=== PATIENT | female | born 1975 | race Caucasian/White ===

== ENCOUNTER 2020-03-16 01:04 | Emergency (ER) | payer SELFPAY ==
[2020-03-16 01:14] VITALS: BP 104/52
[2020-03-16] MEDS ORDERED: MORPHINE SULFATE 10 MG/ML INJ IV ONE (01:20)
[2020-03-16] MEDS ORDERED: ONDANSETRON HCL INJ/PF 4 MG/2 ML SDV IV ONE (01:21)
--- NOTE | 2020-03-16 01:23 | ER Document Report ---
ED Medical Screen (RME) - General Chief Complaint: Back Pain Stated Complaint: BACK & HIP PAIN Time Seen by Provider: 03/16/20 01:13 Primary Care Provider: KIMBERLY GIANG PA-C [Primary Care Provider] - Follow up as needed Mode of Arrival: Wheelchair Information source: Patient Notes: HPI; 44-year-old female presents to the emergency room with sudden onset of left hip and back pain that started 5 hours prior to arrival.. History of 2 back into left hip replacements most recently left hip replacement a month ago. States she took her Percocet, Zanaflex, and use lidocaine patches without relief about 2 hours ago. Denies any urinary symptoms. Pain radiates from low back into left hip. She denies loss control of bowels or bladder. No saddle anesthesia. PE: Alert and oriented x3. Moderate distress noted. Lungs: Clear to auscultation without rales, rhonchi, wheezes. Heart: Regular rate and rhythm without murmurs, rubs, gallops. Unable to do full exam in triage and secondary to pain. I have greeted and performed a rapid initial assessment of this patient. A comprehensive ED assessment and evaluation of the patient, analysis of test results and completion of the medical decision making process will be conducted by additional ED providers. I have specifically instructed the patient or family members with the patient to immediately return to any nursing staff should anything change in the patient's condition or with their chief complaint. TRAVEL OUTSIDE OF THE [place] IN LAST 30 DAYS: No - Related Data Allergies/Adverse Reactions: Penicillins Allergy (Verified 10/27/11 15:23) Sulfa (Sulfonamide Antibiotics) Allergy (Verified 10/27/11 15:23) trazodone [Trazodone] Allergy (Verified 10/27/11 15:23) vancomycin [Vancomycin] Allergy (Verified 10/27/11 15:23) Past Medical History Endocrine Medical History: Reports: Hx Hypothyroidism Musculoskeltal Medical History: Reports Hx Fibromyalgia, Reports Hx Muscle Spasm Past Surgical History: Reports: Hx Cholecystectomy, Hx Gastric Bypass Surgery, Hx Orthopedic Surgery - both knees - Immunizations Hx Diphtheria, Pertussis, Tetanus Vaccination: Yes Physical Exam - Vital signs Vitals: Temp Pulse Resp BP Pulse Ox 97.4 F 83 18 104/52 L 100 03/16/20 01:11 03/16/20 01:11 03/16/20 01:11 03/16/20 01:11 03/16/20 01:11 Course - Vital Signs Vital signs: Temp Pulse Resp BP Pulse Ox 97.4 F 83 18 104/52 L 100 03/16/20 01:11 03/16/20 01:11 03/16/20 01:11 03/16/20 01:11 03/16/20 01:11 Doctor's Discharge - Discharge Referrals: KIMBERLY GIANG PA-C [Primary Care Provider] - Follow up as needed
[2020-03-16] MEDS ORDERED: ONDANSETRON 4 MG TAB.RAPDIS PO ONE (01:59)
== END 2020-03-16 02:10 | disposition left against medical advice (07) ==
LOC: ER 01:04
DX: M25.552 Pain in left hip (principal); M54.9 Dorsalgia, unspecified; Z96.642 Presence of left artificial hip joint; Z53.29 Procedure and treatment not carried out because of patient's decision for other reasons; Z98.84 Bariatric surgery status; Z88.0 Allergy status to penicillin; Z88.2 Allergy status to sulfonamides; Z88.8 Allergy status to other drugs, medicaments and biological substances
CPT/HCPCS: 96374; 96375; 99281; 99284

== ENCOUNTER 2020-03-16 12:49 | Emergency (ER) | payer BC ==
--- NOTE | 2020-03-16 13:26 | ER Document Report ---
ED Medical Screen (RME) - General Chief Complaint: General Weakness Stated Complaint: WEAKNESS Time Seen by Provider: 03/16/20 13:13 Primary Care Provider: KIMBERLY GIANG PA-C [Primary Care Provider] - Follow up as needed Information source: Patient Notes: 44-year-old female presents to the emergency room with sudden body weakness. She states she was seen here 12 hours before now for back and hip pain and she left before seeing a provider but now she has general body weakness. She states she has a history of [place]'s for 8 years. She states she went by her primary care providers and she was told that she would need to go to [facility] because we do not have anybody here that treats [place]. She states she usually gets admitted and gets put on high-dose steroids for 3 days. Patient is alert oriented respirations regular nonlabored at this time. Vital signs are not tip 98 respirations 16 pulse ox 99% blood pressure 123/60 and heart rate 70. States she came to the emergency room here because she could not get down the steps and they had to call EMS to get her down the steps and they brought her to this hospital. I have greeted and performed a rapid initial assessment of this patient. A comprehensive ED assessment and evaluation of the patient, analysis of test results and completion of medical decision making process will be conducted by an additional ED providers. TRAVEL OUTSIDE OF THE [place] IN LAST 30 DAYS: No - Related Data Allergies/Adverse Reactions: ciprofloxacin Allergy (Verified 03/16/20 01:24) meperidine [From Demerol] Allergy (Verified 03/16/20 01:25) Penicillins Allergy (Verified 10/27/11 15:23) Sulfa (Sulfonamide Antibiotics) Allergy (Verified 10/27/11 15:23) trazodone [Trazodone] Allergy (Verified 10/27/11 15:23) vancomycin [Vancomycin] Allergy (Verified 10/27/11 15:23) Past Medical History Endocrine Medical History: Reports: Hx Hypothyroidism Musculoskeltal Medical History: Reports Hx Fibromyalgia, Reports Hx Muscle Spasm Past Surgical History: Reports: Hx Cholecystectomy, Hx Gastric Bypass Surgery, Hx Orthopedic Surgery - both knees - Immunizations Hx Diphtheria, Pertussis, Tetanus Vaccination: Yes Physical Exam - Vital signs Vitals: Temp Pulse Resp BP Pulse Ox 98.0 F 70 16 123/60 99 03/16/20 12:59 03/16/20 12:59 03/16/20 12:59 03/16/20 12:59 03/16/20 12:59 Course - Vital Signs Vital signs: Temp Pulse Resp BP Pulse Ox 98.0 F 70 16 123/60 99 03/16/20 12:59 03/16/20 12:59 03/16/20 12:59 03/16/20 12:59 03/16/20 12:59 Doctor's Discharge - Discharge Referrals: KIMBERLY GIANG PA-C [Primary Care Provider] - Follow up as needed
[2020-03-16] MEDS ORDERED: NORMAL SALINE 1000 ML 1,000 ML IV ONE (13:28)
--- NOTE | 2020-03-16 13:54 | ER Document Report ---
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 Feels like prior addisonian crises. She says her labs usually come back normal but she is usually admitted for 3 days of high-dose steroids. She moved here from [place] and has primary care but no quebracho tanner. She denies specifically any pain nausea vomiting back pain fevers or COVID-like symptoms. TRAVEL OUTSIDE OF THE [place] IN LAST 30 DAYS: No - Related Data Allergies/Adverse Reactions: ciprofloxacin Allergy (Verified 03/16/20 01:24) meperidine [From Demerol] Allergy (Verified 03/16/20 01:25) Penicillins Allergy (Verified 10/27/11 15:23) Sulfa (Sulfonamide Antibiotics) Allergy (Verified 10/27/11 15:23) trazodone [Trazodone] Allergy (Verified 10/27/11 15:23) vancomycin [Vancomycin] Allergy (Verified 10/27/11 15:23) Past Medical History - General Information source: Patient - Social History Smoking Status: Current Every Day Smoker Frequency of alcohol use: None Drug Abuse: None Family History: None Endocrine Medical History: Reports: Hx Hypothyroidism Musculoskeletal Medical History: Reports Hx Fibromyalgia, Reports Hx Muscle Spasm Past Surgical History: Reports: Hx Cholecystectomy, Hx Gastric Bypass Surgery, Hx Orthopedic Surgery - both knees - Immunizations Hx Diphtheria, Pertussis, Tetanus Vaccination: Yes Review of Systems - Review of Systems Notes: REVIEW OF SYSTEMS GEN: Weakness no fever ENT: Denies sore throat, nasal discharge, ear pain EYES: Denies blurry vision, eye pain, discharge CV: Denies chest pain, palpitations, edema RESP: Denies cough, shortness of breath, wheezing GI: Denies abdominal pain, nausea, vomiting, diarrhea MSK: Denies joint pain/swelling, edema, SKIN: Denies rash, skin lesions LYMPH: Denies swollen glands/lymph nodes NEURO: Denies headache, focal weakness or numbness, dizziness PSYCH: Denies depression, suicidal or homicidal ideation PHYSICAL EXAMINATION General: Limp in bed slow to answer questions refuses to comply with physical exam Head: Atraumatic, normocephalic ENT: Mouth normal, oropharynx moist, no exudates or tonsillar enlargement Eyes: Conjunctiva normal, pupils equal, lids normal Neck: No JVD, supple, no guarding CVS: Normal rate, regular rhythm, no murmurs Resp: No resp distress, equal and normal breath sounds bilaterally GI: Nondistended, soft, no tenderness to palpation, no rebound or guarding Ext: No deformities, no edema, normal range of motion in upper and lower ext Back: No CVA or midline TTP Skin: No rash, warm Lymphatic: No lymphadeopathy noted Neuro: Awake, alert. Face symmetric. GCS 15. EENT: Tearing Physical Exam - Vital signs Vitals: Temp Pulse Resp BP Pulse Ox 98.0 F 70 16 123/60 99 03/16/20 12:59 03/16/20 12:59 03/16/20 12:59 03/16/20 12:59 03/16/20 12:59 Course - Re-evaluation Re-evalutation: 03/16/20 18:55 Patient presents with generalized weakness and fatigue with no focal weakness on exam in the setting of what she states is pots disease and [place]ord[place]'s disease. She said that every time she gets that she gets admitted for IV steroids. Her vitals are normal and not suggestive of an addisonian crisis although she may be somewhat on the spectrum of this, or have another cause of her weakness Full lab work-up does not show any acute abnormalities. She was given fluid. Her pressure stayed in the 100 110 range. I had a long discussion with her and she does not feel like she can be discharged. I discussed her with Dr. Phan the hospitalist. In reviewing her data in chart on the phone with me, as well as my presentation to him regarding her condition he states that she is not having an addisonian crisis and does not need to be admitted. I told him I would attempt to send her home if she was feeling okay. We discussed at length and I did discuss with her the possibility that there is other cause of her weakness. I offered to call the hospitalist to come evaluate her personally for admission, but to the nurse informed that the patient want to be discharged. I printed up her discharge instructions and by the time I got to the room to send her home she had already left.. - Vital Signs Vital signs: Temp Pulse Resp BP Pulse Ox 98.0 F 70 12 103/54 L 97 03/16/20 12:59 03/16/20 12:59 03/16/20 16:31 03/16/20 16:31 03/16/20 16:31 - Laboratory Result Diagrams: 03/16/20 13:40 03/16/20 13:40 Laboratory results interpreted by me: 03/16/20 03/16/20 13:40 13:40 Hgb 11.7 L Hct 35.1 L RDW 14.3 H Sodium 134.7 L Potassium 3.5 L Chloride 97 L AST 305 H ALT 115 H Alkaline Phosphatase 163 H Vitamin B12 957.0 H Discharge - Discharge Clinical Impression: Generalized weakness Condition: Good Disposition: HOME, SELF-CARE Instructions: Weakness (OM) Additional Instructions: We are unable to find a cause of your weakness. Your laboratory testing was normal. We attempted to have you admitted, and offered to have the inpatient doctor come see you. You wish to be discharged. Please return to the ER if you change your mind or have any further symptoms that worry you such as weakness vomiting passing out or any other concerning symptoms. Referrals: KIMBERLY GIANG PA-C [PHYSICIAN INTERACTIVE ACCOUNT MANAGER] - Follow up as needed (NIKKI MATTHEW primary care 3days)
[2020-03-16 14:11] LABS: ABSOLUTE BASOPHILS # (AUTO) 0.1 10^3/uL (0.0-0.2); ABSOLUTE EOSINOPHILS # (AUTO) 0.1 10^3/uL (0.0-0.6); ABSOLUTE LYMPHOCYTES (AUTO) 1.7 10^3/uL (0.5-4.7); ABSOLUTE MONOCYTES (AUTO) 0.6 10^3/uL (0.1-1.4); ABSOLUTE NEUT (AUTO) 2.1 10^3/uL (1.7-8.2); ABSOLUTE RETICS # 0.028 10^6/uL (0.028-0.122); BASOPHILS % (AUTO) 1.3 % (0-2); EOSINOPHILS % (AUTO) 1.9 % (0-6); HEMATOCRIT 35.1 % (36.0-47.0); HEMOGLOBIN 11.7 g/dL (12.0-15.5); MEAN CORPUSCULAR HEMOGLOBIN 27.1 pg (27.0-33.4); MEAN CORPUSCULAR HGB CONC 33.3 g/dL (32.0-36.0); MEAN CORPUSCULAR VOLUME 81 fl (80-97); MONOCYTES % (AUTO) 12.9 % (3-13); PLATELET COUNT 404 10^3/uL (150-450); RED BLOOD COUNT 4.33 10^6/uL (3.72-5.28); RED CELL DISTRIBUTION WIDTH 14.3 % (11.5-14.0); RETICULOCYTE COUNT (AUTO) 0.66 % (0.66-2.85); SEGMENTED NEUTROPHILS % (AUTO) 46.9 % (42-78); TOTAL CELLS COUNTED % (AUTO) 100 %; WHITE BLOOD COUNT 4.5 10^3/uL (4.0-10.5)
[2020-03-16 14:25] LABS: ALBUMIN 4.1 g/dL (3.5-5.0); ALKALINE PHOSPHATASE 163 U/L (38-126); ANION GAP 9 (5-19); ASPARTATE AMINO TRANSFERASE 305 U/L (14-36); BILIRUBIN,TOTAL 0.4 mg/dL (0.2-1.3); BLOOD UREA NITROGEN 12 mg/dL (7-20); CARBON DIOXIDE 29 mmol/L (22-30); CHLORIDE 97 mmol/L (98-107); GLUCOSE 102 mg/dL (75-110); IRON(TIBC) 44.5 ug/dL (37-170); POTASSIUM 3.5 mmol/L (3.6-5.0); TOTAL PROTEIN 7.3 g/dL (6.3-8.2)
[2020-03-16 14:41] LABS: AMORPHOUS SEDIMENT,URINE TRACE /HPF; APPEARANCE,URINE CLEAR; BILIRUBIN,URINE NEGATIVE (NEGATIVE); COLOR,URINE STRAW; GLUCOSE, URINE NEGATIVE (NEGATIVE); KETONES,URINE NEGATIVE (NEGATIVE); PROTEIN,URINE NEGATIVE (NEGATIVE); URINE SPECIFIC GRAVITY 1.006; UROBILINOGEN,URINE NEGATIVE mg/dL (<2.0)
[2020-03-16 14:52] LABS: FREE T3 4.43 pg/mL (2.77-5.27); FREE T4 (FREE THYROXINE) 0.99 ng/dL (0.78-2.19)
[2020-03-16 15:41] LABS: FOLATE > 20.00 ng/mL (>2.76)
[2020-03-16 16:37] VITALS: BP 103/54
== END 2020-03-16 16:37 | disposition home or self-care (01) ==
LOC: ER 12:49
DX: R53.1 Weakness (principal); R53.83 Other fatigue; E27.1 Primary adrenocortical insufficiency; I49.8 Other specified cardiac arrhythmias; F17.200 Nicotine dependence, unspecified, uncomplicated; Z88.1 Allergy status to other antibiotic agents; Z88.6 Allergy status to analgesic agent; Z88.5 Allergy status to narcotic agent; Z88.0 Allergy status to penicillin; Z88.2 Allergy status to sulfonamides; Z88.8 Allergy status to other drugs, medicaments and biological substances
CPT/HCPCS: 99284; 96360; 36415; 84439; 82607; 82728; 82746; 84702; 83540; 83550; 83735; 84443; 85025; 85045; 80053; 81001; 84481; 82533; J7030

== ENCOUNTER 2020-04-15 07:58 | Day surgery (SDC) | payer BC ==
[2020-04-05 11:27] LABS: HEMATOCRIT 35.2 % (36.0-47.0); HEMOGLOBIN 11.5 g/dL (12.0-15.5); MEAN CORPUSCULAR HEMOGLOBIN 26.5 pg (27.0-33.4); MEAN CORPUSCULAR HGB CONC 32.8 g/dL (32.0-36.0); MEAN CORPUSCULAR VOLUME 81 fl (80-97); PLATELET COUNT 432 10^3/uL (150-450); RED BLOOD COUNT 4.36 10^6/uL (3.72-5.28); WHITE BLOOD COUNT 6.2 10^3/uL (4.0-10.5)
[2020-04-05 12:44] LABS: ANION GAP 13 (5-19); BLOOD UREA NITROGEN 16 mg/dL (7-20); CALCIUM 9.5 mg/dL (8.4-10.2); CARBON DIOXIDE 30 mmol/L (22-30); CHLORIDE 98 mmol/L (98-107); GLUCOSE 96 mg/dL (75-110); POTASSIUM 3.9 mmol/L (3.6-5.0)
[~2020-04-15 07:58] MED LIST: ACETAMINOPHEN 325 MG TABLET PO PRN; CEFAZOLIN 2 GM/D5W RTU 2 GM/50 ML RTUPB IV PRN; FENTANYL CITRATE INJ/PF 100 MCG/2 ML AMPUL ONE; LACTATED RINGERS 1000 ML IV PRN; LIDOCAINE 0.5% INJ-PF (5 MG/ML) 50 ML SDV SUBCUT PRN; MIDAZOLAM 2 MG/2 ML INJ ONE; ONDANSETRON HCL INJ/PF 4 MG/2 ML SDV ONE; PROPOFOL INJ 200 MG/20 ML VIAL IV ONE
[2020-04-15 09:08] LABS: ABSOLUTE BASOPHILS # (AUTO) 0.1 10^3/uL (0.0-0.2); ABSOLUTE EOSINOPHILS # (AUTO) 0.1 10^3/uL (0.0-0.6); ABSOLUTE MONOCYTES (AUTO) 0.5 10^3/uL (0.1-1.4); ABSOLUTE NEUT (AUTO) 4.2 10^3/uL (1.7-8.2); BASOPHILS % (AUTO) 1.1 % (0-2); EOSINOPHILS % (AUTO) 1.5 % (0-6); HEMATOCRIT 42.7 % (36.0-47.0); HEMOGLOBIN 14.3 g/dL (12.0-15.5); LYMPHOCYTES % (AUTO) 29.2 % (13-45); MEAN CORPUSCULAR HEMOGLOBIN 26.7 pg (27.0-33.4); MEAN CORPUSCULAR HGB CONC 33.6 g/dL (32.0-36.0); MEAN CORPUSCULAR VOLUME 80 fl (80-97); MONOCYTES % (AUTO) 7.3 % (3-13); PLATELET COUNT 553 10^3/uL (150-450); RED BLOOD COUNT 5.36 10^6/uL (3.72-5.28); RED CELL DISTRIBUTION WIDTH 15.5 % (11.5-14.0); SEGMENTED NEUTROPHILS % (AUTO) 60.9 % (42-78); TOTAL CELLS COUNTED % (AUTO) 100 %; WHITE BLOOD COUNT 6.9 10^3/uL (4.0-10.5)
[2020-04-15] MEDS ORDERED: CEFAZOLIN 1 GM/D5W RTU 1 GM/50 ML RTUPB IV ONE (09:10)
[2020-04-15] MEDS ORDERED: HEPARIN SOD (PORCINE) 1,000 UNIT/ML 1 ML VIAL ONE (09:16)
[2020-04-15] MEDS ORDERED: LIDOCAINE 1%/EPINEPHRINE INJ 20 ML VIAL ONE (09:17)
[2020-04-15 09:20] LABS: ANION GAP 15 (5-19); BLOOD UREA NITROGEN 17 mg/dL (7-20); CALCIUM 10.6 mg/dL (8.4-10.2); CARBON DIOXIDE 24 mmol/L (22-30); CHLORIDE 102 mmol/L (98-107); GLUCOSE 94 mg/dL (75-110); POTASSIUM 4.7 mmol/L (3.6-5.0)
[2020-04-15] MEDS ORDERED: CEFAZOLIN 1 GM/D5W RTU 1 GM/50 ML RTUPB IV PRN (09:35)
[2020-04-15] MEDS ORDERED: PROMETHAZINE HCL INJ 25 MG/1 ML VIAL IV PRN ×2 (09:59)
[2020-04-15] MEDS ORDERED: FENTANYL CITRATE INJ/PF 100 MCG/2 ML AMPUL IV PRN ×3 (09:59)
[2020-04-15] MEDS ORDERED: DIPHENHYDRAMINE HCL 50 MG/ML VIAL IV PRN (09:59)
--- NOTE | 2020-04-15 10:18 | Operative Report ---
Nonrecallable Operative Report DATE OF SURGERY: 04/15/20 PREOPERATIVE DIAGNOSIS: Retained cardiac recorder left chest need for venous access. POSTOPERATIVE DIAGNOSIS: Change cardiac for the left chest wall need for venous access. OPERATION: Rule out hematemesis patient was brought to the operating awake troy Port-A-Cath placement left chest wall with excision of old retained cardiac recorder. SURGEON: TAMI RG NARROW FABRIC LOOM FIXER: ROHAN ROSA ANESTHESIA: Moderate Sedation TISSUE REMOVED OR ALTERED: None COMPLICATIONS: None ESTIMATED BLOOD LOSS: 0 INTRAOPERATIVE FINDINGS: See note PROCEDURE: Procedure note patient was brought to the operating awake alert stable condition placed in the upper table supine position given IV sedation the left chest and neck were prepped draped usual sterile fashion. After appropriate timeout site verification the procedure commenced. Using 1% lidocaine plain the area underneath the left clavicle was anesthetized with the anesthetic. We then used a 16-gauge needle to gain access to the left subclavian vein. Gaining access a J-wire was placed through that and confirmed the superior vena cava by fluoroscopy. Once that was accomplished the tear-away introducer dilator was placed over the wire and into the superior vena cava. This was done under direct vision using fluoroscopy. The tear the dilator and wire were removed and 1 unit and the catheter was then placed through the introducer positioned in the superior vena cava and introducer was torn away. Attention was then turned to the left chest wall. The area over the previous cardiac recording device was palpated a transverse incision was made after anesthetizing the skin with 1% lidocaine plain. Dissection was carried down through subcutaneous tissue Bovie cautery the cardiac recorder which was about 3 cm long by half a centimeter wide was dissec shania from the surrounding fatty tissue and removed. This created I pocket for the port. A pocket was fashioned with Bovie cautery. The catheter was then tunneled from the subclavian stick site to the port site using the tunnel maker supplied with a kit. It was then attached to the port and that was fixed into the pocket. It flushed and withdrew and irrigated easily with heparinized saline solution. The subcutaneous tissue was then reapproximated with interrupted 3-0 Vicryl and skin was reapproximated intracuticular 4-0 Biosyn. And Steri-Strips completed the procedure. The patient was awakened in the operating transferred recovery in stable condition Estimated blood loss was less than 5 cc sponge needle counts correct x2
--- NOTE | 2020-04-15 10:19 | Discharge Summary ---
Discharge Summary (SDC) - Discharge Final Diagnosis: need for venous access and cardiac recording device left chest wall Date of Surgery: 04/15/20 Discharge Date: 04/15/20 Condition: Good Referrals: NIKKI MATTHEW MD [Primary Care Provider] - Discharge Diet: As Tolerated Discharge Activity: Activity As Tolerated Report the Following to Your Physician Immediately: Shortness of Breath, Increase in Pain
[2020-04-15] MEDS ORDERED: OXYCODONE-ACETAMINOPHEN 5-325 MG TABLET ONE (10:31)
[2020-04-15] MEDS ORDERED: OXYCODONE-ACETAMINOPHEN 5-325 MG TABLET PO PRN (11:22)
--- NOTE | 2020-04-15 11:23 | RADIOLOGY REPORT (SQ) ---
EXAM DESCRIPTION: CHEST SINGLE VIEW IMAGES COMPLETED DATE/TIME: 04/15/2020 11:14 am REASON FOR STUDY: POST PORT PLACEMENT COMPARISON: None. EXAM PARAMETERS: NUMBER OF VIEWS: One view. TECHNIQUE: Single frontal radiographic view of the chest acquired. RADIATION DOSE: NA LIMITATIONS: None. FINDINGS: LUNGS AND PLEURA: No opacities, masses or pneumothorax. No pleural effusion. MEDIASTINUM AND HILAR STRUCTURES: No masses. Contour normal. HEART AND VASCULAR STRUCTURES: Heart normal in size. Normal vasculature. BONES: No acute findings. HARDWARE: LEFT-SIDED SUBCLAVIAN BASED CHEST PORT WITH CATHETER TIP AT SVC. OTHER: No other significant finding. IMPRESSION: Left-sided subclavian based chest port with catheter tip at SVC. Apparent catheter kink ing at the 1st rib junction. Recommend correlation with port function. No pneumothorax. TECHNICAL DOCUMENTATION: JOB ID: [id number] 2010 [employer]- All Rights Reserved Reading location - IP/workstation name: [email or web address]
[2020-04-15] MEDS ORDERED: METHYLPREDNISOLONE INJ 125 MG/2 ML SDV ONE (13:48)
[2020-04-15 15:20] VITALS: BP 130/72
--- NOTE | 2020-04-16 14:59 | RADIOLOGY REPORT (SQ) ---
EXAM DESCRIPTION: FLUORO/CV PLACEMENT IMAGES COMPLETED DATE/TIME: 04/15/2020 11:28 am REASON FOR STUDY: PORTACATH PLACEMENT LEFT SIDE ASSISTED WITH FLUORO IN OR I87.8 OTHER SPECIFIED DI SORDERS OF VEINS COMPARISON: None. FLUOROSCOPY TIME: 1.2 minute 4 images saved to PACS. TECHNIQUE: Intra-operative images acquired during surgical procedure to evaluate progress. NUMBER OF IMAGES: 4 LIMITATIONS: None. FINDINGS: Left-sided central line tip overlying SVC. IMPRESSION: IMAGE(S) OBTAINED DURING PROCEDURE. COMMENT: Quality ID [id number]: Final reports for procedures using fluoroscopy that document radiation exp osure indices, or exposure time and number of fluorographic images (if radiation exposure indices are not available) Please consult full operative report of the attending physician for description of the procedure. TECHNICAL DOCUMENTATION: JOB ID: [id number] 2010 [employer]- All Rights Reserved Reading location - IP/workstation name: [email or web address]
== END 2020-04-15 12:20 | disposition home or self-care (01) ==
LOC: OROUT 07:58
PROVIDERS: ATTEND Surgery
DX: E27.1 Primary adrenocortical insufficiency (principal); Z45.09 Encounter for adjustment and management of other cardiac device; Z03.818 Encounter for observation for suspected exposure to other biological agents ruled out; J44.9 Chronic obstructive pulmonary disease, unspecified; G90.50 Complex regional pain syndrome I, unspecified; I50.9 Heart failure, unspecified; D89.89 Other specified disorders involving the immune mechanism, not elsewhere classified; I25.10 Atherosclerotic heart disease of native coronary artery without angina pectoris; E03.9 Hypothyroidism, unspecified; I95.9 Hypotension, unspecified; F50.2 Bulimia nervosa; L40.50 Arthropathic psoriasis, unspecified; E88.81 Metabolic syndrome and other insulin resistance; F17.210 Nicotine dependence, cigarettes, uncomplicated; Z88.0 Allergy status to penicillin; Z88.1 Allergy status to other antibiotic agents; Z88.5 Allergy status to narcotic agent; Z79.899 Other long term (current) drug therapy; Z79.82 Long term (current) use of aspirin
CPT/HCPCS: 36415 ×2; 85025; 85027; 80048 ×2; 71045; 77001; 00532; 36561; 33286; C1788; Q9967; U0003; J2250; J0690; J3010; J1644; J3490; J2930; J2405; J2704; C9803; 532; 87635

== ENCOUNTER 2020-08-16 00:02 | Emergency (ER) | payer BC ==
--- NOTE | 2020-08-16 00:38 | ER Document Report ---
ED General - General Stated Complaint: ABDOMINAL PAIN Time Seen by Provider: 08/16/20 00:27 Primary Care Provider: NIKKI MATTHEW MD [Primary Care Provider] - Follow up as needed TRAVEL OUTSIDE OF THE [place] 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 Patient is a poor historian as she was given versed in route by EMS. Better history obtained from patient's mother. Patient's mother states that she was seen at [facility] ED yesterday for "adrenal crisis". She reported symptoms of abdominal cramping with nausea, vomiting, diarrhea, and back pain. Patient was advised by her senior receptionist, Dr. Lane at [facility], to come to the emergency department. Random cortisol level was drawn which was negative. Dr. Lane was consulted and recommended administering hydrocortisone 100 mg IV and prescribing stress dose steroids at home. Patient was discharged. Mother states that patient was unable to get a prescription today as her insurance would not cover it. Patient attempted to buy it without insurance but was unable to due to the extremely high cost of over $1000. When asked patient states the medication that was declined was a medication for her chronic back pain. She reports compliance with taking the steroids as recommended by her senior receptionist. Patient has an appointment with Dr. Lane tomorrow. Patient became extremely tachycardic and agitated at home which prompted her mom to call EMS. EMS reported heart heart rate in the 160s and Versed was administered in route. Patient is complaining of back pain but denies any other complaints at this time. Mother reports that patient has a history of back pain and has had spinal fusion surgery. - Related Data Allergies/Adverse Reactions: ciprofloxacin Allergy (Verified 08/16/20 00:36) lavender (Lavandula angustifolia) Allergy (Verified 08/16/20 00:36) meperidine [From Demerol] Allergy (Verified 08/16/20 00:36) Penicillins Allergy (Verified 08/16/20 00:36) Sulfa (Sulfonamide Antibiotics) Allergy (Verified 08/16/20 00:36) trazodone [Trazodone] Allergy (Verified 08/16/20 00:36) vancomycin [Vancomycin] Allergy (Verified 08/16/20 00:36) Past Medical History - General Cannot obtain history due to: Altered mental status - on versed - Social History Smoking Status: Unknown if Ever Smoked Family History: None - Past Medical History Cardiac Medical History: Denies: Hx Heart Attack, Hx Hypertension Pulmonary Medical History: Reports: Hx COPD Denies: Hx Asthma, Hx Bronchitis, Hx Pneumonia Neurological Medical History: Denies: Hx Cerebrovascular Accident, Hx Seizures Endocrine Medical History: Reports: Hx Hypothyroidism Musculoskeletal Medical History: Denies Hx Arthritis, Reports Hx Fibromyalgia, Reports Hx Muscle Spasm Past Surgical History: Reports: Hx Cholecystectomy, Hx Gastric Bypass Surgery, Hx Orthopedic Surgery - both knees - Immunizations Hx Diphtheria, Pertussis, Tetanus Vaccination: Yes Review of Systems - Review of Systems -: Yes ROS unobtainable due to patient's medical condition Physical Exam - Vital signs Vitals: Resp Pulse Ox 22 H 99 08/16/20 00:19 08/16/20 00:19 - Notes Notes: PHYSICAL EXAMINATION: VITALS: Vitals reviewed. GENERAL: Writhing in bed in moderate acute distress. HEAD: Atraumatic, normocephalic. EYES: Pupils equal, round, and reactive to light, extraocular movements intact, sclera anicteric, conjunctiva are normal. ENT: Nares patent. Moist mucous membranes. Oropharynx clear without exudates. NECK: Normal range of motion, supple without lymphadenopathy. LUNGS: Breath sounds clear to auscultation bilaterally and equal. No wheezes, rales, or rhonchi. HEART: Tachycardia with regular rhythm without murmurs. ABDOMEN: Soft, nontender, normoactive bowel sounds. No guarding, no rebound. No masses appreciated. No CVA tenderness RECTAL: No hemorrhoids visualized or palpable. No gross blood visualized. Good rectal tone. Heme negative. (Chaperoned by Hudson Pool RN) EXTREMITIES: Normal range of motion, no pitting or edema. No cyanosis. BACK: 5 out of 5 strength both distally and proximally bilateral lower extremities. No midline tenderness over the vertebrae. 2+ patellar reflexes bilaterally. Sensation grossly intact in the bilateral lower extremities. NEUROLOGICAL: No focal neurological deficits. Moves all extremities spontaneously and on command. PSYCH: Normal mood, normal affect. SKIN: Warm, Dry, normal turgor, no rashes or lesions noted. Course - Re-evaluation Re-evalutation: Patient is a 45-year-old female with a history of Fallon's disease and chronic low back pain who presents with back pain and tachycardia. Patient was given Versed by EMS. Patient initially tachycardic with a heart rate in the 130s. Patient was seen at [facility] yesterday for possible adrenal crisis. Patient was discharged with instructions to take stress loading dose of steroids and follow-up with her senior receptionist. Patient has an appointment with endocrinology today. I requested medical records from [facility]. Per [facility] medical records shows HGB of 16.3, K of 3.3 and normal random cortisol level. CBC shows HGB of 11.2, CMP shows K of 2.9. Lipase is unremarkable within normal limits. Serum hCG is negative. Patient's blood pressure low in the 90s/50s. 1L IVF ordered and 40mEq KCl IV ordered. Concern for significant change in hemoglobin from yesterday at [facility] to today with a 4 point change. 08/16/20 04:40 Patient is now more alert and able to give more information concerning her hx. She reports nausea, vomiting, abdominal pain and diarrhea for the past two weeks. She reports darker stools. She has a hx of GERD and a ruptured ulcer. She denies any other signs of active bleeding. Rectal exam performed and heme negative. She denies any chest pain, shortness of breath and states that her current back pain is her chronic back pain but more intense. She was unable to picker operator her prescription medication for her back pain today w hich is why she reports she has increased pain. 08/16/20 07:07 Patient's blood pressure much improved after 1L of IVF with a BP of 130/80s. I have a low clinical suspicion for hemorrhage as patient is hemodynamically stable and has no signs of bleeding on exam. Change in hemoglobin is likely due to hypovolemic status based on her hypotension and consistent decreases of all values on CBC from yesterday values to today. I also have a low clinical suspicion for acute adrenal crisis as patient's vitals have stabilized and random cortisol yesterday was within normal limits. I consulted my supervising physician, Dr. Nielsen, concerning this patient. She is in agreement with discharge with prompt follow up and strict return precautions. Plan to discharge the patient once she has received the full dose of KCl. 08/16/20 08:36 Patient is asking for medication but I explained to her that gun synchronizer priscilla pain is not treated in the emergency department. For that reason she has chosen to leave the facility against medical advice. The relevant issues have been reviewed and discussed with the patient and family at the bedside. At the time of this assessment there is no indication for involuntary commitment. The patient is alert, oriented, and able to express clearly their reasoning for not wanting to remain in the emergency department for further treatment. The patient is not clinically psychotic, intoxicated, and denies and suicidal ideation. Differential or suspected diagnoses based on medical screening exam: Hypokalemia and anemia. The following recommendations/services were offered and refused: Repletion of potassium with KCl IV The following risks were explained: , permanent disability, loss of function Clinical impression: Patient is competent to make decisions regarding the medical treatment that is being offered. - Vital Signs Vital signs: Temp Pulse Resp BP Pulse Ox 97.5 F 135 H 14 102/60 99 08/16/20 00:41 08/16/20 00:41 08/16/20 07:31 08/16/20 07:31 08/16/20 07:31 - Laboratory Results Result Diagrams: 08/16/20 01:40 08/16/20 01:40 Laboratory Results Interpreted: 08/16/20 08/16/20 01:40 01:40 RBC 3.67 L Hgb 11.2 L Hct 32.1 L RDW 15.0 H Plt Count 453 H Potassium 2.9 L* Chloride 109 H Total Protein 5.7 L Albumin 3.3 L Critical Laboratory Results Reviewed: Yes Attending or Supervising Physician who Reviewed Labs: CALIN NIELSEN - Radiology Results Critical Radiology Results Reviewed: No Critical Results - EKG Interpretation by Me Additional EKG results interpreted by me: Sinus rhythm with a rate of 86. QTc 445. Left axis deviation. No T wave inversions or ST segment changes in consecutive leads. Discharge - Discharge Clinical Impression: Fallon disease, Tachycardia, Pott disease Back pain Qualifiers: Back pain location: thoracic back pain Chronicity: chronic Back pain la terality: left Qualified Code(s): M54.6 - Pain in thoracic spine; G89.29 - Other chronic pain Condition: Stable Disposition: AGAINST MEDICAL ADVICE Referrals: NIKKI MATTHEW MD [Primary Care Provider] - Follow up as needed
[2020-08-16 01:58] LABS: ABSOLUTE BASOPHILS # (AUTO) 0.1 10^3/uL (0.0-0.2); ABSOLUTE LYMPHOCYTES (AUTO) 2.4 10^3/uL (0.5-4.7); ABSOLUTE MONOCYTES (AUTO) 0.6 10^3/uL (0.1-1.4); ABSOLUTE NEUT (AUTO) 6.5 10^3/uL (1.7-8.2); BASOPHILS % (AUTO) 0.7 % (0-2); EOSINOPHILS % (AUTO) 0.5 % (0-6); HEMATOCRIT 32.1 % (36.0-47.0); HEMOGLOBIN 11.2 g/dL (12.0-15.5); LYMPHOCYTES % (AUTO) 25.2 % (13-45); MEAN CORPUSCULAR HEMOGLOBIN 30.6 pg (27.0-33.4); MEAN CORPUSCULAR VOLUME 88 fl (80-97); MONOCYTES % (AUTO) 6.7 % (3-13); PLATELET COUNT 453 10^3/uL (150-450); RED BLOOD COUNT 3.67 10^6/uL (3.72-5.28); SEGMENTED NEUTROPHILS % (AUTO) 66.9 % (42-78); TOTAL CELLS COUNTED % (AUTO) 100 %; WHITE BLOOD COUNT 9.7 10^3/uL (4.0-10.5)
[2020-08-16 02:26] LABS: ALBUMIN 3.3 g/dL (3.5-5.0); ALKALINE PHOSPHATASE 89 U/L (38-126); ANION GAP 6 (5-19); ASPARTATE AMINO TRANSFERASE 21 U/L (14-36); BILIRUBIN,DIRECT 0.2 mg/dL (0.0-0.4); BILIRUBIN,TOTAL 0.2 mg/dL (0.2-1.3); BLOOD UREA NITROGEN 10 mg/dL (7-20); CALCIUM 8.9 mg/dL (8.4-10.2); CARBON DIOXIDE 28 mmol/L (22-30); CHLORIDE 109 mmol/L (98-107); GLUCOSE 93 mg/dL (75-110); TOTAL PROTEIN 5.7 g/dL (6.3-8.2)
[2020-08-16 02:31] LABS: POTASSIUM 2.9 mmol/L (3.6-5.0)
[2020-08-16] MEDS ORDERED: NORMAL SALINE 1000 ML 1,000 ML IV ONE (04:41)
[2020-08-16] MEDS ORDERED: POTASSI CL 20 MEQ/50 ML RIDER 20 MEQ/50 ML RTUPB IV ONE (04:41)
[2020-08-16] MEDS: POTASSI CL 20 MEQ/50 ML RIDER 20 MEQ/50 ML RTUPB IV SCH ×2 (05:18→06:51)
[2020-08-16] MEDS ORDERED: HYDROCORTISONE SOD SUCCINATE INJ/PF 100 MG/2 ML SDV IV ONE (06:54)
[2020-08-16 07:57] VITALS: BP 102/60
--- NOTE | 2020-08-16 19:27 | EKG REPORT ---
SEVERITY:- ABNORMAL ECG - SINUS RHYTHM FIRST DEGREE AV BLOCK NONSPECIFIC T ABNORMALITIES, ANT-LAT LEADS : Confirmed by: Michelle Pacheco MD 16-Aug-2020 19:26:55
--- NOTE | 2020-08-16 19:27 | EKG REPORT ---
SEVERITY:- ABNORMAL ECG - SINUS RHYTHM PROBABLE INFERIOR INFARCT, AGE INDETERMINATE CONSIDER ANTERIOR INFARCT : Confirmed by: Michelle Pacheco MD 16-Aug-2020 19:26:50
== END 2020-08-16 08:46 | disposition left against medical advice (07) ==
LOC: ER 00:02
DX: E27.1 Primary adrenocortical insufficiency (principal); A18.01 Tuberculosis of spine; R00.0 Tachycardia, unspecified; G89.29 Other chronic pain; M54.6 Pain in thoracic spine; R10.9 Unspecified abdominal pain; R11.2 Nausea with vomiting, unspecified; R19.7 Diarrhea, unspecified
CPT/HCPCS: 93005; 99284; 96365; 96366; 36415; 83690; 83735; 84703; 85025; 82270; 80053; 93010; J3480; J7030; J1642